=== PATIENT | female | born 1960 | race Caucasian/White ===

== ENCOUNTER 2019-11-13 08:06 | Outpatient (CLI) | payer OTHER | END 2019-11-13 08:12 | disposition home or self-care (01) | LOC: SONOGRAMA 08:06 | DX: E04.2 Nontoxic multinodular goiter (principal) ==

== ENCOUNTER 2020-01-22 10:36 | Inpatient (IN) | payer OTHER ==
[~2020-01-22] VITALS: Ht 167.6 cm; Wt 89.4 kg
[2020-01-26] MEDS ORDERED: AVALIDE 300-121 EACH PO (14:20)
[2020-01-26] MEDS ORDERED: ANASTROZOLE1 MG PO (14:20)
[2020-01-26] MEDS ORDERED: ZYRTEC10 M3 PO (14:20)
[2020-01-26] MEDS ORDERED: SYNTHROID100 MCG PO (14:22)
[2020-01-26] MEDS ORDERED: PEPCID AC20 MG PO (14:22)
[2020-01-26] MEDS ORDERED: PROTONIX40 MG PO (14:22)
[2020-01-26] MEDS ORDERED: DICY20TA PO (14:23)
[2020-01-26] MEDS ORDERED: INTESTINEX680 M1 PO (14:23)
[2020-01-28] MEDS ORDERED: MONTELUKAST SOD10 MG PO (09:51)
== END 2020-01-30 13:04 | disposition home or self-care (01) | DRG 331 ==
LOC: O/R 01-28 06:18 → SURG 01-28 06:18 → SURH 01-28 07:00 → SURG 01-28 14:01
PROVIDERS: ADMIT Colon & Rectal Surgery
PROC: 0DBP4ZZ Excision of Rectum, Percutaneous Endoscopic Approach (ICD-10-PCS; 2020-01-28)
PROC: 0DJD8ZZ Inspection of Lower Intestinal Tract, Via Natural or Artificial Opening Endoscopic (ICD-10-PCS; 2020-01-28)
PROC: 0DBN4ZZ Excision of Sigmoid Colon, Percutaneous Endoscopic Approach (ICD-10-PCS; principal; 2020-01-28 07:00)
DX: K57.30 Diverticulosis of large intestine without perforation or abscess without bleeding (principal); D12.7 Benign neoplasm of rectosigmoid junction; I11.9 Hypertensive heart disease without heart failure; J32.9 Chronic sinusitis, unspecified; E03.9 Hypothyroidism, unspecified

== ENCOUNTER → 2020-01-22 11:06 | Outpatient (CLI) | payer OTHER | END | disposition home or self-care (01) | LOC: LAB 11:06 | DX: K57.32 Diverticulitis of large intestine without perforation or abscess without bleeding (principal); K92.1 Melena; C50.919 Malignant neoplasm of unspecified site of unspecified female breast ==

== ENCOUNTER 2021-03-11 08:08 | Day surgery (SDC) | payer OTHER ==
[~2021-03-11 08:08] MED LIST: ANASTROZOLE1 MG PO; AVALIDE 300-121 EACH PO; DICY20TA PO; INTESTINEX680 M1 PO; MONTELUKAST SOD10 MG PO; PEPCID AC20 MG PO; PROTONIX40 MG PO; SYNTHROID100 MCG PO; ZYRTEC10 M3 PO
== END 2021-03-11 14:27 | disposition home or self-care (01) ==
LOC: AMB-ENDOS 08:08
PROVIDERS: ATTEND Colon & Rectal Surgery
DX: K57.32 Diverticulitis of large intestine without perforation or abscess without bleeding (principal); K64.2 Third degree hemorrhoids; Z20.822 Contact with and (suspected) exposure to COVID-19